=== PATIENT | male | born 1960 | race Caucasian/White ===

== ENCOUNTER 2019-10-23 07:24 | Day surgery (SDC) | payer BC, OTHER ==
[2019-10-23] MEDS ORDERED: PROPOFOL INJ 200 MG/20 ML VIAL IV ONE (07:28)
[2019-10-23] MEDS ORDERED: DEXTROSE 50%-WATER 25 GM/50 ML DISP.SYRIN IV ONE ×2 (07:56→07:59)
--- NOTE | 2019-10-23 08:32 | Operative Report ---
Operative Report DATE OF SURGERY: 10/23/19 Operative Report: The risk, benefits and alternatives of the procedure including the risk of bleeding, perforation requiring surgery have been explained to the patient in detail and informed consent has been obtained. The patient is placed in a left, lateral decubital position. Timeout was called. Propofol medication is administered. Rectal examination is done which did not reveal any masses, tears or fissures. An Olympus videoscope was introduced into the patient's rectum. Scope was then carefully advanced all the way to the cecum. Cecum was identified by the usual anatomical landmarks of the ileocecal valve as well as the appendiceal office. Photodocumentation is obtained. Scope was then sequentially pulled back via the various segments of the colon including the ascending colon, hepatic flexure, transverse colon, splenic flexure, descending colon and finally into the rectosigmoid portions of the colon. Retroflexion maneuvers performed. PREOPERATIVE DIAGNOSIS: Colorectal cancer screening POSTOPERATIVE DIAGNOSIS: Small sessile ascending colon polyp removed via biopsy forceps. Internal hemorrhoids OPERATION: Colonoscopy with biopsy SURGEON: MAHESH CORREIA ANESTHESIA: LMAC TISSUE REMOVED OR ALTERED: As noted above. COMPLICATIONS: None. ESTIMATED BLOOD LOSS: None. INTRAOPERATIVE FINDINGS: As noted above. PROCEDURE: Patient tolerated the procedure well. No immediate postprocedure complications are noted. Patient is discharged in good condition. Discharge date 10/23/2019. Discharge diet: Regular. Discharge activity: Regular. 2 to 3-week follow-up to discuss findings. Patient is instructed to call the office or proceed to the emergency room should there be any further problems or questions. Wait on the pathology. 5-year surveillance colonoscopy.
[2019-10-23 12:13] VITALS: BP 145/80
== END 2019-10-23 09:15 | disposition home or self-care (01) ==
LOC: END 07:24
PROVIDERS: ATTEND Internal Medicine Gastroenterology
DX: Z12.11 Encounter for screening for malignant neoplasm of colon (principal); D12.3 Benign neoplasm of transverse colon; K64.8 Other hemorrhoids; I25.2 Old myocardial infarction; I10 Essential (primary) hypertension; E11.9 Type 2 diabetes mellitus without complications; I25.10 Atherosclerotic heart disease of native coronary artery without angina pectoris; Z88.0 Allergy status to penicillin; Z09 Encounter for follow-up examination after completed treatment for conditions other than malignant neoplasm; Z87.892 Personal history of anaphylaxis; Z03.818 Encounter for observation for suspected exposure to other biological agents ruled out; E03.9 Hypothyroidism, unspecified; E78.2 Mixed hyperlipidemia; G47.33 Obstructive sleep apnea (adult) (pediatric); Z79.84 Long term (current) use of oral hypoglycemic drugs; Z79.4 Long term (current) use of insulin; Z79.899 Other long term (current) drug therapy
CPT/HCPCS: 45380; 82962; 87635; 88305 ×2; J3490; J2704; C9803; 812